=== PATIENT | male | born 1975 | race Caucasian/White ===

== ENCOUNTER 2019-09-18 18:11 | Emergency (ER) | payer OTHER ==
[~2019-09-18] VITALS: Ht 175.3 cm; Wt 105.6 kg
[2019-09-18] MEDS ORDERED: SODIUM CHLORIDE FLUSH 10ML SYR IVF ONE (19:00)
[2019-09-18] MEDS ORDERED: ASPIRIN 81 MG TABLET CHEW PO ONE (19:00)
[2019-09-18] MEDS ORDERED: NITROGLYCERIN SINGLE TAB 0.4 MG SL PRN (19:00)
[2019-09-18 19:14] LABS: BASOPHILS # (AUTO) 0.05 x10^3/uL (0-0.1); BASOPHILS % (AUTO) 0 % (0-1); EOSINOPHILS # (AUTO) 0.11 x10^3/uL (0-0.4); EOSINOPHILS % (AUTO) 1 % (1-7); LYMPHOCYTES # (AUTO) 3.18 x10^3/uL (1-3.4); LYMPHOCYTES % (AUTO) 26 % (22-44); MD NO; MEAN CORPUSCULAR HEMOGLOBIN 29.3 pg (27.5-34.5); MEAN CORPUSCULAR HGB CONC 33.4 g/dL (33.2-36.2); MEAN CORPUSCULAR VOLUME 87.8 fL (81-97); MEAN PLATELET VOLUME 9.4 fL (7.4-10.4); MONOCYTES % (AUTO) 7 % (2-9); NEUTROPHILS # (AUTO) 8.14 x10^3/uL (1.8-6.8); NEUTROPHILS % (AUTO) 66 % (42-75); PLATELET COUNT 294 x10^3/uL (130-400); RED BLOOD COUNT 5.63 x10^6/uL (4.38-5.82); RED CELL DISTRIBUTION WIDTH 12.9 % (9.4-14.8)
[2019-09-18] MEDS ORDERED: NITROGLYCERIN SINGLE TAB 0.4 MG SL ONE (19:17)
[2019-09-18] MEDS ORDERED: ASPIRIN 81 MG TABLET CHEW ONE (19:18)
[2019-09-18 19:25] LABS: ALANINE AMINOTRANSFERASE 85 U/L (12-78); ANION GAP 8 mmol/L (5-15); CALCIUM 8.9 mg/dL (8.5-10.1); CHLORIDE 104 mmol/L (98-107); CREATININE 0.96 mg/dL (0.7-1.3)
--- NOTE | 2019-09-18 19:27 | NUR ---
CP STARTED MONDAY EVENING. REPORTS INTERMITTENT VICE-LIKE CHEST PRESSURE. IBUPROFEN TAKEN FOR SX - LAST DOSE LAST NOC. 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
[2019-09-18 19:29] LABS: ALKALINE PHOSPHATASE 80 U/L (45-117); BILIRUBIN,TOTAL 0.6 mg/dL (0.2-1.0); TOTAL PROTEIN 7.8 g/dL (6.4-8.2); TROPONIN I < 0.015 ng/mL (0.000-0.045)
--- NOTE | 2019-09-18 19:38 | NUR ---
C/O NUMBNESS TO LT FACE & LT EAR PAIN. Addendum: 09/18/19 at 1944 by ALTA MONITOR: SINUS TACH 125 BRIEFLY, DROPPING TO 110
--- NOTE | 2019-09-18 19:43 | NUR ---
DR HARP CONSULTED RE: PT STATUS
[2019-09-18] MEDS ORDERED: SODIUM CHLORIDE 0.9% 1,000ML IVBOLUS ONE (20:00)
[2019-09-18 21:07] VITALS: BP 106/72
== END 2019-09-18 21:15 | disposition home or self-care (01) ==
LOC: ED 20:50
DX: R07.89 Other chest pain (principal); M79.602 Pain in left arm; R06.02 Shortness of breath
CPT/HCPCS: 36415; 71045; 80053; 83735; 84436; 84443; 84484; 85025; 85379; 93005; 99284; J7030